=== PATIENT | female | born 1985 | race Caucasian/White ===

== ENCOUNTER 2017-02-17 06:03 | Inpatient (IN) | payer BC, OTHER ==
--- NOTE | 2017-02-11 08:25 | PREOP ---
ADMISSION DATE: 02/17/2017 DATE OF SURGERY: 02/17/2017. PROCEDURE: Repeat section. ANESTHESIA: Regional. INDICATION: Term 39+ weeks gestation, previous section x2. SURGEON OF RECORD: Junaid Echevarria MD ANGER CONTROL COUNSELOR: Arturo Castellanos MD Kathie Gan was seen at [facility] on 02/10/2017 for preop examination. She is scheduled for repeat section on 02/17/2017 [address] [facility]. Dr. Echevarria surgical provider of record. She is a 1, para 2-0-0-2 female at 39 weeks 2 days gestation, with accurate due dates by both examination, clinical findings, and ultrasound. Risks and benefits have been discussed at length. PRESENT MEDICATIONS: Include vitamins only. PAST MEDICAL HISTORY: Significant for two previous sections. No other operative procedures, hospitalizations, unusual childhood diseases, major injuries, or fractures. SOCIAL HISTORY: [place] resident, happily . Two sons one healthy, the other son of complications of a respiratory event. She is a nonsmoker, no alcohol consumption or illicit drug use. FAMILY HISTORY: Negative for early heart disease, diabetes mellitus, or inheritable cancers. REVIEW OF SYSTEMS: Generally feeling well. Baby has been active. No contractions. No bleeding. She has a little bit of achiness in her joints, but doing well. PHYSICAL EXAMINATION: VITAL SIGNS: Weight 198.2 pounds, temperature 97.3, blood pressure 112/60, pulse 76, respirations 20. GENERAL: Young lady, cooperative, conversant. HEENT: Funduscopic benign. Conjunctivae clear. Bright tympanic membranes. Clear nasal discharge. Mouth and oropharynx clear. Excellent dentition, no loose teeth. NECK: Benign. Thyroid small. CHEST: Clear in all lung yap. No adventitious sounds on auscultation. HEART: Regular without ectopy or murmur, on auscultation. ABDOMEN: Term gravid uterus. 37 cm, vertex presentation, small parts to the right, back to the left. PELVIC: Deferred. EXTREMITIES: Well perfused. Minimal edema. LABORATORY DATA: Preop laboratory studies on the morning of admission. ASSESSMENT: Preop examination for upcoming repeat section. PLAN: Risks, benefits, and expectations were discussed. Dr. Echevarria is aware and will see her on the morning of the procedure. /[id number] MAURICE/ZHANNA RODRÍGUEZ
[2017-02-17] MEDS ORDERED: Scopolamine 1.5 MG Transdermal Patch TOP ONE (07:14)
[2017-02-17] MEDS ORDERED: Citric Acid/Sodium Citrate Solution 30 ML Cup PO ONE (07:14)
[2017-02-17] MEDS ORDERED: ePHEDrine/Normal Saline 50 MG/5 ML Syringe IV ONE (08:00)
[2017-02-17] MEDS ORDERED: Midazolam 1 MG/ML 2 ML SDV IV ONE (08:00)
[2017-02-17] MEDS ORDERED: fentaNYL 100 MCG/2 ML SDV IV ONE (08:00)
[2017-02-17] MEDS ORDERED: Sodium Chloride 0.9% 10 ML Syringe FLUSH PRN (08:00)
[2017-02-17] MEDS ORDERED: Ondansetron 4 MG/2 ML SDV IVPUSH ONE (08:00)
[2017-02-17] MEDS ORDERED: Oxytocin 10 Units/1 ML SDV IV ONE (08:00)
[2017-02-17] MEDS ORDERED: Bupivacaine 0.75%/D5W 2 ML Amp ISPINAL ONE (08:00)
[2017-02-17] MEDS ORDERED: Morphine PF 10 MG/10 ML SDV ONE (08:00)
[2017-02-17] MEDS ORDERED: ceFAZolin 2 GM in Premix Bag 1 BAG IV ONE (08:00)
[2017-02-17] MEDS ORDERED: Lactated Ringers 1,000 ML IV ONE (08:00)
--- NOTE | 2017-02-17 08:09 | PCM.HPR ---
H & P Addendum review - H & P Addendum Review Date of Original H & P: 02/10/17 Date Reviewed: 02/17/17 Time Reviewed: 08:00 Patient was examined: No Changes
--- NOTE | 2017-02-17 09:04 | PCM.OPNOTE ---
- General Post-Op/Procedure Note Date of Surgery/Procedure: 02/17/17 Operative Procedure(s): Repeat C-sect Pre Op Diagnosis: Term preg; previous C-sect Post-Op Diagnosis: Same Anesthesia Technique: Spinal Primary Surgeon: Junaid Echevarria Anesthesia Provider: Rachael Bray Blacksmith Assistant: Arturo Castellanos Pathology: Placenta EBL in mLs: 300 Complications: None Condition: Good
[2017-02-17] MEDS ORDERED: diphenhydrAMINE 50 MG/ML SDV IVPUSH PRN ×3 (09:05→11:13)
[2017-02-17] MEDS ORDERED: ePHEDrine 50 MG/ML SDV IVPUSH PRN ×2 (09:05→09:07)
[2017-02-17] MEDS ORDERED: Naloxone 0.4 MG/ML SDV IVPUSH PRN ×4 (09:05→11:13)
[2017-02-17] MEDS ORDERED: Bisacodyl 10 MG Supp RECTAL PRN (09:07)
[2017-02-17] MEDS ORDERED: diphenhydrAMINE 25 MG Cap PO PRN (09:07)
[2017-02-17] MEDS ORDERED: Docusate Sodium 100 MG Cap PO PRN (09:07)
[2017-02-17] MEDS ORDERED: Lactated Ringers 1,000 ML IV SCH (09:15)
--- NOTE | 2017-02-17 09:59 | OR ---
DATE OF OPERATION: 02/17/2017 SURGEON: Junaid Echevarria MD PREOPERATIVE DIAGNOSIS: Term with previous section. POSTOPERATIVE DIAGNOSIS: Term with previous section. PROCEDURE: Repeat section. ANESTHESIA: Spinal. NARRATIVE: The patient was brought to the operating room, where a time-out was performed. Her urinary catheter was inserted. After spinal anesthesia was administered, the lower abdomen was prepped with ChloraPrep and draped sterilely. A transverse incision was made through her previous scar and extended through the rectus fascia. The rectus muscles were split in the midline and peritoneal cavity entered without difficulty. The lower uterine segment was thin but had good muscle layer remaining. This was sharply incised until the amniotic sac was visible. Amniotic sac was ruptured and the amniotic fluid was clear. 's head position was left occiput transverse. Head was delivered without difficulty. Mouth and nose were suctioned. Nuchal cord was present once and reduced. The rest of the was delivered without difficulty. The cord was clamped and cut, and cord blood obtained. The male was handed off to the nursing staff. The uterus was massaged, placenta completely removed, and all membranes ensured to be stripped. The uterus was closed in a single layer with running locking #1 Vicryl. Hemostasis was assured. The uterus was delivered back into the peritoneal cavity. One small 6- mm fibroid was present on the dome of the uterus. The peritoneum was closed with running #2-0 chromic, rectus fascia was closed with running 0 Vicryl, subcutaneous tissues were irrigated, and skin closed with a running #4-0 Vicryl subcuticular suture. Benzoin and Steri-Strips were placed and a sterile dressing was applied. The patient tolerated the procedure well. Estimated blood loss was 300 mL. She was returned to postanesthesia in stable condition. /[id number] ORLIN/ZHANNA
[2017-02-17] MEDS ORDERED: Naloxone 0.4 MG in Sodium Chloride 0.9% 100 ML IV PRN (11:13)
[2017-02-17] MEDS ORDERED: hydrOXYzine HCl 50 MG/ML SDV IM PRN (11:13)
[2017-02-17] MEDS ORDERED: Nalbuphine 10 MG/1 ML Vial IVPUSH PRN (11:13)
[2017-02-17] MEDS ORDERED: Promethazine 25 MG/ML SDV IV PRN ×2 (11:13)
[2017-02-17] MEDS ORDERED: Morphine 2 MG/ML Syringe IVPUSH PRN (11:13)
[2017-02-17] MEDS ORDERED: Ondansetron 4 MG/2 ML SDV IVPUSH PRN (11:20)
[2017-02-17] MEDS: Ketorolac 15 MG/ML SDV IVPUSH PRN ×2 (11:33→18:53)
[2017-02-17] MEDS: Lactated Ringers 1,000 ML IV SCH ×2 (13:26→21:33)
[2017-02-18] MEDS: Ketorolac 15 MG/ML SDV IVPUSH PRN (03:48)
[2017-02-18] MEDS: Lactated Ringers 1,000 ML IV SCH (05:13)
[2017-02-18] MEDS ORDERED: Remove SCOP Patch TRDERM ONE (08:00)
[2017-02-18] MEDS: Acetaminophen/HYDROcodone 325-5 MG Tab PO PRN ×4 (08:03→22:28)
[2017-02-18] MEDS: Ibuprofen 600 MG Tab PO PRN ×2 (10:19→16:48)
--- NOTE | 2017-02-18 11:50 | PCM.SURGPN ---
- General Info Date of Service: 02/18/17 POD#: 1 Functional Status: Reports: pain controlled, tolerating diet, ambulating, urinating - Review of Systems General: Reports: No Symptoms Gastrointestinal: Reports: No symptoms Genitourinary: Reports: no symptoms - Patient Data Vitals - most recent: Last Vital Signs Temp 98.5 F 02/18/17 03:50 Pulse 57 L 02/18/17 03:50 Resp 18 02/18/17 03:50 BP 103/50 L 02/18/17 03:50 Pulse Ox 98 02/18/17 03:50 Weight - most recent: 89.811 kg I&O - last 24 hours: Intake & Output 02/17/17 02/18/17 02/18/17 22:59 06:59 14:59 Intake Total 958 1000 468 Output Total 1450 800 450 Balance -492 200 18 Lab Results last 24 hrs: Laboratory Results - last 24 hr 02/18/17 02/18/17 Range/Units 06:30 06:30 WBC 7.7 (4.5-12.0) X10-3/uL RBC 3.44 (3.23-5.20) x10(6)uL Hgb 10.4 L (11.5-15.5) g/dL Hct 30.9 (30.0-51.3) % MCV 89.8 (80-96) fL MCH 30.2 (27.7-33.6) pg MCHC 33.6 (32.2-35.4) g/dL RDW 12.6 (11.5-15.5) % Plt Count 149 (125-369) X10(3)uL Blood Type A NEGATIVE Gel Antibody Screen Negative Rhogam Indicated Yes, baby rh pos Med Orders - Current: Current Medications Hydrocodone Bitart/Acetaminophen ([place] 325-5 Mg) 1 tab PO Q4H PRN PRN Reason: Pain (moderate 4-6) Last Admin: 02/18/17 08:03 Dose: 1 tab Bisacodyl (Dulcolax) 10 mg RECTAL BID PRN PRN Reason: Constipation Diphenhydramine HCl (Benadryl) 25 mg IVPUSH Q6H PRN PRN Reason: Itching or Nausea Diphenhydramine HCl (Benadryl) 25 mg PO Q4H PRN PRN Reason: Itching Last Admin: 02/17/17 17:05 Dose: 25 mg Diphenhydramine HCl (Benadryl) 25 mg IVPUSH ASDIRECTED PRN PRN Reason: PRURITUS FIRST CHOICE Docusate Sodium (Colace) 100 mg PO Q12H PRN PRN Reason: Constipation Ephedrine Sulfate (Ephedrine Sulfate) 5 mg IVPUSH ASDIRECTED PRN PRN Reason: Other Hydroxyzine HCl (Vistaril) 25 - 50 mg IM Q4H PRN PRN Reason: N/V 3RD CHOICE Lactated Ringer's (Ringers, Lactated) 1,000 mls @ 125 mls/hr IV ASDIRECTED GINO Last Admin: 02/18/17 05:13 Dose: 125 mls/hr Lactated Ringer's (Ringers, Lactated) 1,000 mls @ 125 mls/hr IV ASDIRECTED GINO Naloxone HCl 0.4 mg/ Sodium (Chloride) 101 mls @ 25 mls/hr IV ASDIRECTED PRN PRN Reason: RESPIRATORY STATUS Ibuprofen (Motrin) 600 mg PO Q6H PRN PRN Reason: mild pain or fever Last Admin: 02/18/17 10:19 Dose: 600 mg Ketorolac Tromethamine (Toradol) 15 mg IVPUSH Q6H PRN PRN Reason: BREAKTHRU PAIN Last Admin: 02/18/17 03:48 Dose: 15 mg Morphine Sulfate (Morphine) 2 mg IVPUSH Q1H PRN PRN Reason: BREAKTHRU PAIN Last Admin: 02/17/17 23:35 Dose: 2 mg Nalbuphine HCl (Nubain) 10 mg IVPUSH Q1H PRN PRN Reason: PRURITUS 2ND CHOICE Naloxone HCl (Narcan) 0.4 mg IVPUSH ASDIRECTED PRN PRN Reason: RESPIRATORY STATUS Naloxone HCl (Narcan) 0.1 mg IVPUSH ASDIRECTED PRN PRN Reason: RESPIRATORY STATUS Ondansetron HCl (Zofran) 4 mg IVPUSH Q6H PRN PRN Reason: N/V 1ST CHOICE Promethazine HCl (Phenergan) 6.25 mg IV Q4H PRN PRN Reason: N/V 2ND CHOICE Promethazine HCl (Phenergan) 12.5 mg IV Q4H PRN PRN Reason: N/V Sodium Chloride (Saline Flush) 10 ml FLUSH ASDIRECTED PRN PRN Reason: Keep Vein Open Discontinued Medications Bupivacaine HCl/Dextrose (Marcaine 0.75% Spinal) 1.3 ml ISPINAL .STK-MED ONE Stop: 02/17/17 08:01 Citric Acid/Sodium Citrate (Bicitra Solution) 30 ml PO ONETIME ONE Stop: 02/17/17 07:15 Last Admin: 02/17/17 07:53 Dose: 30 ml Ephedrine Sulfate (Ephedrine In Ns) 10 mg IV .STK-MED ONE Stop: 02/17/17 08:01 Fentanyl (Sublimaze) 100 mcg IV .STK-MED ONE Stop: 02/17/17 08:01 Cefazolin Sodium/Dextrose 2 gm (/ Premix) 50 mls @ 100 mls/hr IV ONETIME ONE Stop: 02/17/17 08:29 Last Admin: 02/17/17 07:54 Dose: 100 mls/hr Lactated Ringer's (Ringers, Lactated) 1,000 mls @ as directed IV .STK-MED ONE Stop: 02/17/17 08:01 Midazolam HCl (Versed 1 Mg/Ml) 2 mg IV .STK-MED ONE Stop: 02/17/17 08:01 Miscellaneous Information (Remove Patch) 1 ea TRDERM ONETIME ONE Stop: 02/18/17 08:01 Last Admin: 02/18/17 08:03 Dose: 1 ea Morphine Sulfate (Duramorph Pf) 0.4 mg .XX .STK-MED ONE Stop: 02/17/17 08:01 Naloxone HCl (Narcan) 0.1 mg IVPUSH ASDIRECTED PRN PRN Reason: Respiratory Depression Stop: 02/17/17 09:06 Naloxone HCl (Narcan) 0.1 mg IVPUSH ASDIRECTED PRN PRN Reason: Respiratory Depression Stop: 02/17/17 09:08 Ondansetron HCl (Zofran) 4 mg IVPUSH .STK-MED ONE Stop: 02/17/17 08:01 Oxytocin (Pitocin) 10 unit IV .STK-MED ONE Stop: 02/17/17 08:01 Scopolamine (Transderm-Scop) 1.5 mg TOP ONETIME ONE Stop: 02/17/17 07:15 Last Admin: 02/17/17 07:53 Dose: 1.5 mg - Exam Wound/Incisions: healing well General: alert, oriented Abdomen: soft - Problem List Review Problem List Initiated/Reviewed/Updated: Yes - My Orders Last 24 Hours: Active Orders 24 hr Category Date Time Status May Shower [RC] ASDIRECTED Care 02/18/17 08:00 Active Urinary Catheter Removal [RC] Per Unit Routine Care 02/18/17 08:00 Active SCREEN [BBK] Routine Lab 02/18/17 06:30 Results RH IMMUNE GLOBULIN [BBK] Routine Lab 02/18/17 06:30 Results RHOGAM, [RHIG WORKUP, ] [BBK] Lab 02/18/17 06:30 Results Routine Ibuprofen [Motrin] Med 02/18/17 08:00 Active 600 mg PO Q6H PRN Ketorolac [Toradol] Med 02/17/17 11:13 Active 15 mg IVPUSH Q6H PRN Morphine Med 02/17/17 11:13 Active 2 mg IVPUSH Q1H PRN Nalbuphine [Nubain] Med 02/17/17 11:13 Active 10 mg IVPUSH Q1H PRN Naloxone [Narcan] Med 02/17/17 11:13 Active 0.1 mg IVPUSH ASDIRECTED PRN Naloxone [Narcan] Med 02/17/17 11:13 Active 0.4 mg IVPUSH ASDIRECTED PRN Naloxone [Narcan] 0.4 mg Med 02/17/17 11:13 Active Sodium Chloride 0.9% [Normal Saline] 100 ml IV ASDIRECTED Ondansetron [Zofran] Med 02/17/17 11:20 Active 4 mg IVPUSH Q6H PRN Promethazine [Phenergan] Med 02/17/17 11:13 Active 12.5 mg IV Q4H PRN Promethazine [Phenergan] Med 02/17/17 11:13 Active 6.25 mg IV Q4H PRN diphenhydrAMINE [Benadryl] Med 02/17/17 11:13 Active 25 mg IVPUSH ASDIRECTED PRN hydrOXYzine HCl [Vistaril] Med 02/17/17 11:13 Active 25 - 50 mg IM Q4H PRN Resuscitation Status Routine Resus Stat 02/17/17 13:13 Ordered Medication Orders Hydrocodone Bitart/Acetaminophen ([place] 325-5 Mg) 1 tab PO Q4H PRN PRN Reason: Pain (moderate 4-6) Last Admin: 02/18/17 08:03 Dose: 1 tab Bisacodyl (Dulcolax) 10 mg RECTAL BID PRN PRN Reason: Constipation Diphenhydramine HCl (Benadryl) 25 mg IVPUSH Q6H PRN PRN Reason: Itching or Nausea Diphenhydramine HCl (Benadryl) 25 mg PO Q4H PRN PRN Reason: Itching Last Admin: 02/17/17 17:05 Dose: 25 mg Diphenhydramine HCl (Benadryl) 25 mg IVPUSH ASDIRECTED PRN PRN Reason: PRURITUS FIRST CHOICE Docusate Sodium (Colace) 100 mg PO Q12H PRN PRN Reason: Constipation Ephedrine Sulfate (Ephedrine Sulfate) 5 mg IVPUSH ASDIRECTED PRN PRN Reason: Other Hydroxyzine HCl (Vistaril) 25 - 50 mg IM Q4H PRN PRN Reason: N/V 3RD CHOICE Lactated Ringer's (Ringers, Lactated) 1,000 mls @ 125 mls/hr IV ASDIRECTED GINO Last Admin: 02/18/17 05:13 Dose: 125 mls/hr Infusion: 02/18/17 05:13 Dose: 125 mls/hr Admin: 02/17/17 21:33 Dose: 125 mls/hr Infusion: 02/17/17 21:26 Dose: 125 mls/hr Admin: 02/17/17 13:26 Dose: 125 mls/hr Lactated Ringer's (Ringers, Lactated) 1,000 mls @ 125 mls/hr IV ASDIRECTED GINO Naloxone HCl 0.4 mg/ Sodium (Chloride) 101 mls @ 25 mls/hr IV ASDIRECTED PRN PRN Reason: RESPIRATORY STATUS Ibuprofen (Motrin) 600 mg PO Q6H PRN PRN Reason: mild pain or fever Last Admin: 02/18/17 10:19 Dose: 600 mg Ketorolac Tromethamine (Toradol) 15 mg IVPUSH Q6H PRN PRN Reason: BREAKTHRU PAIN Last Admin: 02/18/17 03:48 Dose: 15 mg Admin: 02/17/17 18:53 Dose: 15 mg Admin: 02/17/17 11:33 Dose: 15 mg Morphine Sulfate (Morphine) 2 mg IVPUSH Q1H PRN PRN Reason: BREAKTHRU PAIN Last Admin: 02/17/17 23:35 Dose: 2 mg Nalbuphine HCl (Nubain) 10 mg IVPUSH Q1H PRN PRN Reason: PRURITUS 2ND CHOICE Naloxone HCl (Narcan) 0.4 mg IVPUSH ASDIRECTED PRN PRN Reason: RESPIRATORY STATUS Naloxone HCl (Narcan) 0.1 mg IVPUSH ASDIRECTED PRN PRN Reason: RESPIRATORY STATUS Ondansetron HCl (Zofran) 4 mg IVPUSH Q6H PRN PRN Reason: N/V 1ST CHOICE Promethazine HCl (Phenergan) 6.25 mg IV Q4H PRN PRN Reason: N/V 2ND CHOICE Promethazine HCl (Phenergan) 12.5 mg IV Q4H PRN PRN Reason: N/V Sodium Chloride (Saline Flush) 10 ml FLUSH ASDIRECTED PRN PRN Reason: Keep Vein Open - Assessment Assessment (Free Text/Narrative):: Doing well POD #1 Hbb 10.4 D/C IV and Aron
[2017-02-19] MEDS: Ibuprofen 600 MG Tab PO PRN (01:36)
[2017-02-19] MEDS: Acetaminophen/HYDROcodone 325-5 MG Tab PO PRN (02:18)
[2017-02-19] MEDS ORDERED: Ibuprofen 600 MG Tab PO SCH (08:00)
--- NOTE | 2017-02-19 09:16 | PN ---
DATE SEEN: 02/19/2017 SUBJECTIVE: Kathie Gan is a 32-year-old, 3, para 3 female, 2 days . Up, ambulating. Pain has not been adequately controlled. She has had little bit of distention with reasonable gas, otherwise doing well. LABORATORY STUDIES: hemoglobin 10.4. PHYSICAL EXAMINATION: U-2 tone satisfactory, incision healing well with Steri- Strips well applied. ASSESSMENT: day 2, no problems. PLAN: We will increase pain medications as appropriate. Give the ibuprofen routinely. We will change her [place] to a higher dose, discontinue IV site. /[id number] MAURICE/ZHANNA
[2017-02-19] MEDS: Acetaminophen/HYDROcodone 325-7.5 MG Tab PO PRN ×2 (11:05→17:01)
[2017-02-19] MEDS: Ibuprofen 600 MG Tab PO SCH ×2 (14:16→21:20)
[2017-02-20] MEDS: Ibuprofen 600 MG Tab PO SCH ×2 (03:06→09:39)
[2017-02-20] MEDS: Acetaminophen/HYDROcodone 325-7.5 MG Tab PO PRN (08:04)
--- NOTE | 2017-02-20 13:43 | DISCH ---
DISCHARGE DATE: 02/20/2017 DISCHARGE DIAGNOSES: Term intrauterine , repeat section, male , weight 8 pounds 1 ounce. scores 9 and 9. HOSPITAL COURSE: Kathie Gan is a 32-year-old, 3, para [address] [facility] on the morning of 02/17/2017. Under regional anesthesia, she underwent repeat section under the care of Dr. Junaid Echevarria/Kayleigh Castellanos. Intraoperative course was uncomplicated. Male infant, weight 8 pounds 1 ounce. scores 9 and 9. Mom's postoperative course was without complication. Intravenous fluids and Sharp catheter were maintained on first hospital day, diet was advanced slowly, switched from intravenous analgesics to oral analgesics with good benefit. Adjustment upward for pain medications was required. Wound healed well. Postoperative hemoglobin 10.4 and preoperative 12.3. Wound was healing without difficulty. Uterus was U-2 at the time of discharge. She had moderate expected edema of the lower extremities and was ambulating with good pain control. Discharged home on vitamin One A Day; [place] 7.5-325 one p.o. q.4 hours, #40; ibuprofen 600 mg 1 p.o. q.i.d., #50, refill provided on ibuprofen. Discharged for followup at the 2-week time along with the baby. Lengthy postoperative instructions given. /[id number] MAURICE/ZHANNA
[2017-02-20 15:07] VITALS: BP 116/87
== END 2017-02-20 11:35 | disposition home or self-care (01) | DRG 766 ==
LOC: FB.OB 06:03
PROVIDERS: ADMIT Family Medicine; ATTEND Family Medicine
PROC: 10D00Z1 Extraction of Products of Conception, Low, Open Approach (ICD-10-PCS; principal; 2017-02-17)
DX: O34.211 Maternal care for low transverse scar from previous cesarean delivery (principal); N85.8 Other specified noninflammatory disorders of uterus; O69.81X0 Labor and delivery complicated by cord around neck, without compression, not applicable or unspecified; Z3A.39 39 weeks gestation of pregnancy; Z37.0 Single live birth
CPT/HCPCS: 36415; 85025; 85027; 85460; 86850; 86900; 86901; 88307; 94150; A9270-GY; J0690; J1885; J2250; J2270; J2405; J2590; J2790; J3010; J7120